=== PATIENT | male | born 2005 ===

== ENCOUNTER 2025-04-10 09:06 | Inpatient (IN) | payer OTHER ==
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
[2025-04-10] MEDS: SODIUM CHLORIDE 0.9% 1,000 ML IV STA (09:42)
[2025-04-10 09:48] LABS: Basophils # (A) 0.01 10*3/uL (0.00-0.10); Basophils % (A) 0.2 %; Eosinophils # (A) 0.02 10*3/uL (0.04-0.35); Eosinophils % (A) 0.3 %; HCT 47.5 % (39.6-50.0); HGB 16.0 g/dL (13.0-17.0); Lymphocytes # (A) 1.00 10*3/uL (0.90-5.00); Lymphocytes % (A) 15.8 %; MCH 28.7 pg (27.0-32.0); MCHC 33.7 g/dL (32.0-37.0); MCV 85.3 fL (80.0-97.0); Monocytes # (A) 0.49 10*3/uL (0.20-1.00); Monocytes % (A) 7.7 %; Neutrophils # (A) 4.80 10*3/uL (1.80-7.70); Neutrophils % (A) 75.7 %; Platelet Count 318 10*3/uL (140-440); RBC 5.57 10*6/uL (4.40-5.60); RDW 12.6 % (11.5-14.5); WBC 6.34 10*3/uL (4.50-10.00)
[2025-04-10 10:01] LABS: Barbiturate Screen,Urine Not Detected (NotDetected); Benzodiazepines Screen,Urine Not Detected (NotDetected); Opiate Screen,Urine Not Detected (NotDetected); Oxycodone Screen, Urine Not Detected (NotDetected); Phencyclidine Screen,Urine Not Detected (NotDetected); Tricyclic Antidepressant,Urine Not Detected (NotDetected); Urn Cannabinoid Scrn Not Detected (NotDetected)
[2025-04-10 10:06] LABS: ALT 25 U/L (4-49); AST 31 U/L (17-59); African American GFR (CKD) >90 (>60 ml/min/1.73 sqM); Albumin 4.7 g/dL (3.5-5.0); Alkaline Phosphatase 71 U/L (38-126); Anion Gap 14 mmol/L; Blood Urea Nitrogen 12 mg/dL (9-20); Calcium 9.7 mg/dL (8.4-10.2); Carbon Dioxide 18 mmol/L (22-30); Chloride 105 mmol/L (98-107); Glucose 91 mg/dL (74-99); Non-African American GFR(CKD) >90 (>60 ml/min/1.73 sqM); Potassium 3.9 mmol/L (3.5-5.1); Sodium 137 mmol/L (137-145); Total Protein 7.5 g/dL (6.3-8.2)
[2025-04-10 10:11] LABS: INR 1.0 (<1.2); Partial Thromboplastin Time 23.3 sec (22.0-30.0); Prothrombin Time 11.5 sec (10.0-12.5)
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
[2025-04-10] MEDS: ACETAMINOPHEN TAB 500 MG TAB PO STA (12:53)
[2025-04-10] MEDS ORDERED: MAGNESIUM HYDROXIDE 2,400 MG/30 ML CUP PO PRN (20:16)
[2025-04-10] MEDS ORDERED: MAG HYDROX/AL HYDROX/SIMETH 355 ML BOTTLE PO PRN (20:16)
[2025-04-10] MEDS ORDERED: IBUPROFEN 600 MG TAB PO PRN (20:16)
[2025-04-10] MEDS ORDERED: LORazepam 1 MG TAB PO PRN (20:21)
[2025-04-10] MEDS ORDERED: HALOPERIDOL LACTATE 5 MG/ML 1 ML VIAL IM PRN (20:21)
[2025-04-11] MEDS: ACETAMINOPHEN TAB 325 MG TAB PO PRN (00:15)
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
[2025-04-11 08:45] LABS: Cholesterol 134.00 mg/dL (0.00-200.00); HDL Cholesterol 40.60 mg/dL (40.00-60.00); LDL Cholesterol,Calculated 65.6 mg/dL (0.0-131.0); Triglycerides 139.00 mg/dL (0.00-149.00); VLDL Calculation 27.80 mg/dL (5.00-40.00)
[2025-04-11] MEDS: NICOTINE 14MG/24HR PATCH TRANSDERM SCH (09:50)
[2025-04-11] MEDS: SERTRALINE 50 MG TAB PO SCH (11:57)
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
[2025-04-11] MEDS: NICOTINE GUM (POLACRILEX) 2 MG GUM BUCCAL PRN (18:40)
[2025-04-12 09:14] LABS: Bilirubin,Urine Negative (Negative); Blood,Urine Negative (Negative); Color,Urine Yellow; Glucose,Urine (UA) Negative (Negative); Ketones,Urine Negative (Negative); Leukocyte Esterase,Urine Negative (Negative); Nitrite,Urine Negative (Negative); PH, Urine 5.5 (5.0-8.0); Protein,Urine Negative (Negative); Specific Gravity,Urine 1.028 (1.001-1.035); Urobilinogen,Urine <2.0 mg/dL (<2.0)
[2025-04-12] MEDS: SERTRALINE 50 MG TAB PO STA (09:50)
--- NOTE | 2025-04-12 12:00 | P.PN ---
Progress Note - Text Progress Note Date: 04/12/25 Interval History: Patient was seen wandering the hallways and was directable and agreeable to sp parker with press writer in the office. He states he has been tending to his ADLs which is a first in a while however continues to not wish to socialize given his introversion. He was encouraged to attend at least 1 group. He reports sleeping better, feeling less anxious today. He was future oriented and talked about his desire to return back to work upon discharge. At this time patient denies any suicidal or homicidal ideations, intent or plan. Patient denies any auditory, visual hallucinations and denies any paranoia or delusions. Patient denies any side effects from the medications and has been compliant with meds. Mental Status Exam: General Appearance: Patient appears to be stated age is alert, directable, and cooperative. He has fair grooming and hygiene Behavior: Patient is calmly seated without any agitated behavior. Speech: Patient's speech is fluent and nonpressured. Mood/Affect: Mood is improving mildly, affect is congruent and blunted. Suicidality/Homicidality: Patient denies having any suicidal or homicidal ideation intent or plan. Perceptions: Patient denies any visual hallucinations and denies any auditory hallucinations Though content/process: There is no evidence of any delusional thought content and thought process is linear and goal-directed. Memory and concentration: AOX3, grossly intact for the purposes of this session Judgment and insight: Improving mildly Assessment Major depressive disorder, single episode, moderate Generalized anxiety disorder with panic attacks PTSD Nicotine dependence Plan: -Patient continues to meet criteria for inpatient psychiatric admission for symptom stabilization and safety. Patient has signed adult voluntary form and medication consent and was placed in patient's chart. -Medications: Increase Zoloft to 100 mg daily for depression/anxiety, continue trazodone 50 mg at bedtime for insomnia -When necessary Ativan and Haldol for agitation/aggression. -Labs: Reviewed, WNL -NRT - nicotine patch -SW on board for discharge planning. Encouraged the patient to participate in milieu. Anticipate discharge home with friend tomorrow
[2025-04-13 08:50] VITALS: BP 128/80; PULSE 133; RESP 18; TEMP 98.1
[2025-04-13] MEDS: SERTRALINE 100 MG TAB PO SCH (08:50)
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
== END 2025-04-13 13:45 | disposition home or self-care (01) | DRG 885 ==
LOC: EC 09:06 → 3MHU 20:10
PROVIDERS: ADMIT Psychiatry & Neurology Psychiatry; ATTEND Psychiatry & Neurology Psychiatry
DX: F32.1 Major depressive disorder, single episode, moderate (principal); Z59.01 Sheltered homelessness; R45.851 Suicidal ideations; I10 Essential (primary) hypertension; F17.200 Nicotine dependence, unspecified, uncomplicated; F41.0 Panic disorder [episodic paroxysmal anxiety]; F41.1 Generalized anxiety disorder; F43.10 Post-traumatic stress disorder, unspecified; G47.00 Insomnia, unspecified; Z91.52 Personal history of nonsuicidal self-harm; Z91.51 Personal history of suicidal behavior; Z79.899 Other long term (current) drug therapy; Y32.XXXA Crashing of motor vehicle, undetermined intent, initial encounter; Z71.89 Other specified counseling; Z28.21 Immunization not carried out because of patient refusal
CPT/HCPCS: 36415; 70450; 71260; 72125; 74177; 80053; 80061; 80306; 80320; 81003; 82075; 83036; 83605; 84443; 85025; 85610; 85730; 87635; 93005; 99285